=== PATIENT | male | born 2000 | race American Indian/Alaskan Native ===

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

== ENCOUNTER 2019-08-28 23:46 | Emergency (ER) | payer MEDICARE ==
[2019-08-29] MEDS ORDERED: ONDANSETRON 4 MG/2 ML INJ IV ONE (00:31)
[2019-08-29] MEDS ORDERED: HYDROmorphone 2 MG/1 ML INJ IV ONE ×2 (00:31→02:02)
[2019-08-29] MEDS ORDERED: SODIUM CHLORIDE 0.9% 1000 ML 1,000 ML IV ONE (00:31)
--- NOTE | 2019-08-29 00:31 | Emergency Department Report ---
HPI - General Chief Complaint: Sickle Cell Crisis Time Seen by Provider: 08/29/19 00:12 - HPI HPI: 19-year-old male presents to the emergency department with complaint of pain to the mid to lower back and bilateral lower extremities for the past week that he believes is a sickle cell pain crisis. These are the locations the patient usually does get pain when he has a pain crisis. He denies any fever, shortness of breath, cough, extremity swelling, rash. He has been taking his home medications including folic acid and Percocet, without any relief. He also has a past medical history of seizures and CVA without residual deficits. His rehabilitation therapist is Dr. Vasquez. No recent travel or sick contacts at home. ED Past Medical Hx - Past Medical History Hx Hypertension: Yes Hx CVA: Yes (memory loss) Hx Congestive Heart Failure: No Hx Diabetes: No Hx Sickle Cell Disease: Yes Hx Seizures: Yes Hx Asthma: No Hx COPD: No Hx HIV: No - Surgical History Additional Surgical History: Spleenectomy 2016 - Social History Smoking Status: Never Smoker Substance Use Type: None - Medications Home Medications: Home Medications Medication Instructions Recorded Confirmed Last Taken Type Albuterol INH(or & Nicu Only) 4 puff IH Q4HR PRN 03/05/19 03/05/19 Unknown History [Proair] Cholecalciferol (Vitamin D3) 1,000 unit PO DAILY 03/05/19 03/05/19 Unknown History [Children's Vitamin D3 1,000 unit CHEW] Docusate Sodium [Colace] 100 mg PO BID PRN 03/05/19 03/05/19 Unknown History Miralax 3350 17 gm PO PRN 03/05/19 03/05/19 Unknown History NIFEdipine [Adalat cc] 30 mg PO BID 03/05/19 03/05/19 Unknown History Naloxone HCl [Narcan Nasal Bomoseen] 4 mg INNOSTRIL PRN PRN 03/05/19 03/05/19 Unknown History Oxycodone HCl/Acetaminophen 1 each PO Q4HR PRN 03/05/19 03/05/19 Unknown History [Percocet 10/325 mg] Veetids TAB 250 mg PO BID 03/05/19 03/05/19 Unknown History diphenhydrAMINE [Benadryl CAP] 25 mg PO Q6HR PRN 03/05/19 03/05/19 Unknown History labetaloL [Labetalol 200mg TAB] 200 mg PO BID 03/05/19 03/05/19 Unknown History levETIRAcetam [Keppra TAB] 1,000 mg PO BID 03/05/19 03/05/19 Unknown History methOCARBAMOL [Robaxin TAB] 1,000 mg PO Q8H PRN 03/05/19 03/05/19 Unknown History ED Review of Systems ROS: Stated complaint: SICKLE CELL CRISIS Other details as noted in HPI Comment: All other systems reviewed and negative Constitutional: denies: chills, fever Eyes: denies: eye pain, vision change ENT: denies: ear pain, throat pain Respiratory: denies: cough, shortness of breath Cardiovascular: denies: chest pain, palpitations Gastrointestinal: denies: abdominal pain, vomiting Genitourinary: denies: dysuria, discharge Musculoskeletal: back pain, myalgia. denies: joint swelling Skin: denies: rash, lesions Neurological: denies: headache, weakness Physical Exam - Physical Exam Physical Exam: GENERAL: The patient is well-developed well-nourished. HENT: Normocephalic. Atraumatic. Patient has moist mucous membranes. EYES: Extraocular motions are intact. NECK: Supple. Trachea is midline. CHEST/LUNGS: Clear to auscultation. There is no respiratory distress noted. HEART/CARDIOVASCULAR: Regular. There is no tachycardia. ABDOMEN: Abdomen is soft, nontender. Patient has normal bowel sounds. SKIN: Skin is warm and dry. NEURO: The patient is awake, alert, and oriented. The patient is cooperative. The patient has no focal neurologic deficits. Normal speech. MUSCULOSKELETAL: There is no tenderness or deformity. There is no limitation range of motion. There is no evidence of acute injury. BACK: No midline thoracic or lumbar tenderness to palpation, step-off or deformity. There is reproducible lumbar and lower thoracic bilateral paraspinal tenderness to palpation. ED Medical Decision Making - Lab Data Result diagrams: 08/29/19 01:03 08/29/19 01:03 - Medical Decision Making This patient presents to the emergency department with some back pain and bilateral leg pain consistent with previous sickle cell pain crisis. His vital signs are stable including being afebrile. Patient has a hemoglobin of 11, reticulocyte count of 2. He has a potassium level of 5.5 for which he was given a small amount of Kayexalate. Patient was given IV fluid resuscitation and multiple rounds of IV analgesia with improvement of his symptoms. His pain score was down to a 3 out of 10 prior to discharge. The patient remained awake, alert, oriented throughout his ED course. He was seen ambulatory and both appears and feels stable. He has good outpatient follow-up with Dr. Vasquez, hematology. Critical Care Time: No Critical care attestation.: If time is entered above; I have spent that time in minutes in the direct care of this critically ill patient, excluding procedure time. ED Disposition Clinical Impression: Sickle cell anemia with pain Disposition: DC-01 TO HOME OR SELFCARE Is pt being admited?: No Condition: Stable Instructions: Sickle Cell Crisis (ED) Additional Instructions: Please follow-up with Dr. Vasquez in the next few days. [facility] with any worsening of your symptoms or any acute distress. Referrals: KAILEE VASQUEZ DO [Staff Physician] - 2-3 Days Time of Disposition: 03:40
[2019-08-29] MEDS ORDERED: ONDANSETRON 4 MG/2 ML INJ ONE (00:33)
[2019-08-29] MEDS ORDERED: HYDROmorphone 1 MG/1 ML INJ ONE (00:34)
[2019-08-29] MEDS ORDERED: diphenhydrAMINE 50 MG/ML VIAL ONE (00:39)
[2019-08-29] MEDS ORDERED: diphenhydrAMINE 50 MG/ML VIAL IV ONE ×2 (00:52→03:25)
[2019-08-29 01:27] LABS: BUN/Creatinine Ratio 6; Blood Urea Nitrogen 6 mg/dL (9-20); Calcium 8.6 mg/dL (8.4-10.2); Hemolysis Index 135
[2019-08-29 01:42] LABS: Basophils # (Auto) 0.1 K/mm3 (0.0-0.1); Basophils % (Auto) 1.2 % (0.0-1.8); Eosinophils # (Auto) 0.2 K/mm3 (0.0-0.4); Eosinophils % (Auto) 1.7 % (0.0-4.3); Hematocrit 35.3 % (35.5-45.6); Hemoglobin 11.6 gm/dl (11.8-15.2); Lymphocytes # (Auto) 3.3 K/mm3 (1.2-5.4); Lymphocytes % (Auto) 32.9 % (13.4-35.0); Mean Corpuscular HGB Conc 33 % (32-34); Mean Corpuscular Volume 73 fl (84-94); Monocytes # (Auto) 0.9 K/mm3 (0.0-0.8); Monocytes % (Auto) 8.9 % (0.0-7.3); Platelet Count 311 K/mm3 (140-440); Red Blood Count 4.84 M/mm3 (3.65-5.03); Red Cell Distribution Width 17.4 % (13.2-15.2)
[2019-08-29] MEDS ORDERED: KETOROLAC 30 MG/1 ML INJ IV ONE (02:02)
[2019-08-29] MEDS ORDERED: SODIUM POLYSTYRENE 15 GM/60 ML ORAL LIQD PO ONE (03:02)
[2019-08-29 03:15] VITALS: BP 144/72
[2019-08-29] MEDS ORDERED: HYDROmorphone 1 MG/1 ML INJ IV ONE (03:24)
== END 2019-08-29 04:06 | disposition home or self-care (01) ==
LOC: ED 23:46
DX: D57.00 Hb-SS disease with crisis, unspecified (principal); Z79.899 Other long term (current) drug therapy; Z98.890 Other specified postprocedural states; Z86.73 Personal history of transient ischemic attack (TIA), and cerebral infarction without residual deficits; Z86.69 Personal history of other diseases of the nervous system and sense organs; Z88.6 Allergy status to analgesic agent
CPT/HCPCS: 36415; 80048; 85025; 85045; 96374; 96375; 96376; 99284; J1170; J1200; J1885; J2405; J7030

== ENCOUNTER 2019-09-17 18:36 | Inpatient (IN) | payer MEDICARE ==
[2019-09-17 20:23] LABS: Alanine Aminotransferase 7 units/L (7-56); Albumin 4.5 g/dL (3.9-5); BUN/Creatinine Ratio 8; Basophils # (Auto) 0.1 K/mm3 (0.0-0.1); Basophils % (Auto) 1.7 % (0.0-1.8); Blood Urea Nitrogen 8 mg/dL (9-20); Calcium 8.9 mg/dL (8.4-10.2); Eosinophils # (Auto) 0.1 K/mm3 (0.0-0.4); Eosinophils % (Auto) 1.6 % (0.0-4.3); Hematocrit 36.3 % (35.5-45.6); Hemoglobin 12.3 gm/dl (11.8-15.2); Hemolysis Index 13; Lymphocytes # (Auto) 2.6 K/mm3 (1.2-5.4); Mean Corpuscular HGB Conc 34 % (32-34); Mean Corpuscular Volume 71 fl (84-94); Monocytes # (Auto) 0.9 K/mm3 (0.0-0.8); Monocytes % (Auto) 10.4 % (0.0-7.3); Platelet Count 405 K/mm3 (140-440); Red Blood Count 5.09 M/mm3 (3.65-5.03); Red Cell Distribution Width 17.7 % (13.2-15.2)
[2019-09-17] MEDS ORDERED: SODIUM CHLORIDE 0.9% 1000 ML 1,000 ML IV ONE (20:39)
[2019-09-17] MEDS ORDERED: HYDROmorphone 1 MG/1 ML INJ IV ONE (20:39)
[2019-09-17] MEDS ORDERED: HYDROmorphone 2 MG/1 ML INJ IV ONE ×3 (20:42→23:36)
--- NOTE | 2019-09-17 20:43 | Emergency Department Report ---
HPI - General Chief Complaint: Sickle Cell Crisis Time Seen by Provider: 09/17/19 20:22 - HPI HPI: 19-year-old male presents to the emergency department with complaint of a 2-day history of bilateral leg pain and back pain that he feels is a sickle cell pain crisis. He says that this is consistent with previous sickle cell pain crisis. He follows with Dr. Hanks for hematology. He has been taking his Percocet at home without much relief. 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 I saw this patient in late August of this year for similar symptoms. He denies any fever, chest pain, shortness of breath, extremity swelling, rash. ED Past Medical Hx - Past Medical History Previous Medical History?: Yes Hx Hypertension: Yes Hx CVA: Yes (memory loss) Hx Congestive Heart Failure: No Hx Diabetes: No Hx Sickle Cell Disease: Yes Hx Seizures: Yes Hx Asthma: No Hx COPD: No Hx HIV: No - Surgical History Past Surgical History?: Yes Additional Surgical History: Spleenectomy 2016 - Social History Smoking Status: Never Smoker Substance Use Type: None - Medications Home Medications: Home Medications Medication Instructions Recorded Confirmed Last Taken Type Albuterol INH(or & Nicu Only) 4 puff IH Q4HR PRN 03/05/19 03/05/19 Unknown History [Proair] Cholecalciferol (Vitamin D3) 1,000 unit PO DAILY 03/05/19 03/05/19 Unknown History [Children's Vitamin D3 1,000 unit CHEW] Docusate Sodium [Colace] 100 mg PO BID PRN 03/05/19 03/05/19 Unknown History Miralax 3350 17 gm PO PRN 03/05/19 03/05/19 Unknown History NIFEdipine [Adalat cc] 30 mg PO BID 03/05/19 03/05/19 Unknown History Naloxone HCl [Narcan Nasal [place]] 4 mg INNOSTRIL PRN PRN 03/05/19 03/05/19 Unknown History Oxycodone HCl/Acetaminophen 1 each PO Q4HR PRN 03/05/19 03/05/19 Unknown History [Percocet 10/325 mg] Veetids TAB 250 mg PO BID 03/05/19 03/05/19 Unknown History diphenhydrAMINE [Benadryl CAP] 25 mg PO Q6HR PRN 03/05/19 03/05/19 Unknown History labetaloL [Labetalol 200mg TAB] 200 mg PO BID 03/05/19 03/05/19 Unknown History levETIRAcetam [Keppra TAB] 1,000 mg PO BID 03/05/19 03/05/19 Unknown History methOCARBAMOL [Robaxin TAB] 1,000 mg PO Q8H PRN 03/05/19 03/05/19 Unknown History ED Review of Systems ROS: Stated complaint: SICKLE CELL CRISIS Other details as noted in HPI Comment: All other systems reviewed and negative Constitutional: denies: chills, fever Eyes: denies: eye pain, vision change ENT: denies: ear pain, throat pain Respiratory: denies: cough, shortness of breath Cardiovascular: denies: chest pain, palpitations Gastrointestinal: denies: abdominal pain, vomiting Genitourinary: denies: dysuria, discharge Musculoskeletal: back pain, arthralgia, myalgia Skin: denies: rash, lesions Neurological: denies: headache, weakness Physical Exam - Physical Exam Vital Signs: Vital Signs 09/17/19 18:55 Temperature 98.4 F Pulse Rate 64 Respiratory 18 Rate Blood Pressure 126/68 O2 Sat by Pulse 100 Oximetry Physical Exam: GENERAL: The patient is well-developed well-nourished. HENT: Normocephalic. Atraumatic. Patient has moist mucous membranes. EYES: Extraocular motions are intact. NECK: Supple. Trachea is midline. CHEST/LUNGS: Clear to auscultation. There is no respiratory distress noted. HEART/CARDIOVASCULAR: Regular. There is no tachycardia. ABDOMEN: Abdomen is soft, nontender. Patient has normal bowel sounds. SKIN: Skin is warm and dry. NEURO: The patient is awake, alert, and oriented. The patient is cooperative. The patient has no focal neurologic deficits. Normal speech. MUSCULOSKELETAL: There is no tenderness or deformity. There is no limitation range of motion. There is no evidence of acute injury. BACK: There is both some midline and bilateral paraspinal lumbar tenderness to palpation but no step-off or deformity. ED Course Vital Signs 09/17/19 18:55 Temperature 98.4 F Pulse Rate 64 Respiratory 18 Rate Blood Pressure 126/68 O2 Sat by Pulse 100 Oximetry ED Medical Decision Making - Lab Data Result diagrams: 09/17/19 19:52 05/13/20 19:52 - Medical Decision Making This patient presents to the emergency department with a complaint of some low back pain and bilateral leg pain that is consistent with previous sickle cell pain crisis. Hemoglobin is about 12 and reticulocyte count is about 1.5. The patient was given IV fluid resuscitation and 3 different doses of IV analgesia and the patient still complains of moderate to severe pain. For this reason I spoke with the patient's primary care physician, Dr. Hanks, who will admit the patient to his service. Critical Care Time: No Critical care attestation.: If time is entered above; I have spent that time in minutes in the direct care of this critically ill patient, excluding procedure time. ED Disposition Clinical Impression: Sickle cell pain crisis, Intractable pain Disposition: OP ADMIT IP TO THIS HOSP Is pt being admited?: Yes Condition: Fair Time of Disposition: 01:42
[2019-09-17] MEDS ORDERED: diphenhydrAMINE 50 MG/ML VIAL ONE (20:54)
[2019-09-17] MEDS ORDERED: diphenhydrAMINE 50 MG/ML VIAL IV ONE (21:03)
[2019-09-17] MEDS ORDERED: HYDROmorphone 1 MG/1 ML INJ ONE (21:05)
[2019-09-18] MEDS ORDERED: ONDANSETRON 4 MG/2 ML INJ IV ONE (00:41)
[2019-09-18] MEDS ORDERED: oxyCODONE /ACETAMINOPHEN 5-325MG TAB ONE (00:44)
[2019-09-18] MEDS ORDERED: ONDANSETRON 4 MG/2 ML INJ ONE (00:44)
[2019-09-18] MEDS: diphenhydrAMINE 50 MG/ML VIAL IV PRN ×5 (00:57→20:54)
[2019-09-18] MEDS: oxyCODONE /ACETAMINOPHEN 5-325MG TAB PO SCH ×4 (00:57→18:31)
[2019-09-18] MEDS: D5W/0.2% NACL 1,000 ML IV SCH ×4 (00:58→12:33)
[2019-09-18] MEDS: HYDROmorphone 2 MG/1 ML INJ IV PRN ×6 (02:37→20:48)
--- NOTE | 2019-09-18 21:00 | History and Physical Report ---
History of Present Illness Date of examination: 09/18/19 Date of admission: 09/18/19 00:28 Chief complaint: SCD/mild anemia/dehydration, pain crisis. History of present illness: Patient presented to the ER, with CC of diffuse joint pain, evaluated, and admitted , for sxs management/control. His pain was not controlled in the ER, hence this admission Patient usually keep fair amount of hgb, and low retic count, yet he be in pain crisis. 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 Past History Past Medical History: anemia (CVA), other Past Surgical History: No surgical history Social history: no significant social history, single, lives with family Family history: no significant family history Medications and Allergies Allergies Allergy/AdvReac Type Severity Reaction Status Date / Time aspirin Allergy Unknown Verified 08/29/19 00:44 Home Medications Medication Instructions Recorded Confirmed Last Taken Type Albuterol INH(or & Nicu Only) 4 puff IH Q4HR PRN 03/05/19 09/18/19 Unknown History [Proair] Cholecalciferol (Vitamin D3) 1,000 unit PO DAILY 03/05/19 09/18/19 Unknown History [Children's Vitamin D3 1,000 unit CHEW] Docusate Sodium [Colace] 100 mg PO BID PRN 03/05/19 09/18/19 Unknown History Miralax 3350 17 gm PO PRN 03/05/19 09/18/19 Unknown History NIFEdipine [Adalat cc] 30 mg PO BID 03/05/19 09/18/19 Unknown History Naloxone HCl [Narcan Nasal [place]] 4 mg INNOSTRIL PRN PRN 03/05/19 09/18/19 Unknown History Oxycodone HCl/Acetaminophen 1 each PO Q4HR PRN 03/05/19 09/18/19 Unknown History [Percocet 10/325 mg] Veetids TAB 250 mg PO BID 03/05/19 09/18/19 Unknown History diphenhydrAMINE [Benadryl CAP] 25 mg PO Q6HR PRN 03/05/19 09/18/19 Unknown History labetaloL [Labetalol 200mg TAB] 200 mg PO BID 03/05/19 09/18/19 Unknown History levETIRAcetam [Keppra TAB] 1,000 mg PO BID 03/05/19 09/18/19 Unknown History methOCARBAMOL [Robaxin TAB] 1,000 mg PO Q8H PRN 03/05/19 09/18/19 Unknown History Active Meds: Active Medications Diphenhydramine HCl (Benadryl) 12.5 mg IV Q3H PRN PRN Reason: Itching Last Admin: 09/18/19 10:25 Dose: 12.5 mg Documented by: Hydromorphone HCl (Dilaudid) 2 mg IV Q3H PRN PRN Reason: Pain, Moderate (4-6) Last Admin: 09/18/19 20:48 Dose: 2 mg Documented by: Dextrose/Sodium Chloride (D5ns 0.2%) 1,000 mls @ 250 mls/hr IV DIRECT LENNY Last Admin: 09/18/19 12:33 Dose: 250 mls/hr Documented by: Oxycodone/Acetaminophen (Percocet 5/325) 2 tab PO Q6H LNENY Last Admin: 09/18/19 18:31 Dose: 2 tab Documented by: Review of Systems Constitutional: weakness, chronic pain Musculoskeletal: low back pain, shooting leg pain Exam - Constitutional Vitals: Temp Pulse Resp BP Pulse Ox 98.2 F 70 16 157/77 100 09/18/19 20:08 09/18/19 20:08 09/18/19 20:48 09/18/19 20:08 09/18/19 20:08 General appearance: Present: mild distress, well-nourished - EENT Eyes: Present: PERRL ENT: hearing intact, clear oral mucosa - Neck Neck: Present: supple, normal ROM - Respiratory Respiratory effort: normal Respiratory: bilateral: CTA - Cardiovascular Heart Sounds: Present: S1 & S2. Absent: rub, click - Extremities Extremities: pulses symmetrical, No edema Peripheral Pulses: within normal limits - Abdominal General gastrointestinal: Present: soft, non-tender, non-distended, normal bowel sounds Male genitourinary: Present: deferred - Rectal Rectal Exam: deferred - Integumentary Integumentary: Present: clear, warm, dry - Musculoskeletal Musculoskeletal: gait normal, strength equal bilaterally - Psychiatric Psychiatric: appropriate mood/affect, intact judgment & insight - Neurologic Neurologic: CNII-XII intact, moves all extremities HEART Score - HEART Score Risk factors: No known risk factors (no major risk.) Results - Labs CBC & Chem 7: 09/17/19 19:52 09/17/19 19:52 Assessment and Plan - Patient Problems (1) Sickle cell pain crisis Current Visit: Yes Status: Acute Plan to address problem: Pain control (2) Dehydration Current Visit: No Status: Resolved Plan to address problem: hydration. (3) Weakness Current Visit: No Status: Resolved Plan to address problem: supportive care.
[2019-09-18] MEDS ORDERED: POLYETHYLENE GLYCOL 3350 17 GM POWDER PO PRN (21:06)
[2019-09-19] MEDS: HYDROmorphone 2 MG/1 ML INJ IV PRN ×6 (00:01→23:46)
[2019-09-19] MEDS: diphenhydrAMINE 50 MG/ML VIAL IV PRN ×6 (00:03→23:45)
[2019-09-19] MEDS: oxyCODONE /ACETAMINOPHEN 5-325MG TAB PO SCH ×4 (05:28→18:32)
[2019-09-19] MEDS: D5W/0.2% NACL 1,000 ML IV SCH ×3 (06:10→20:27)
--- NOTE | 2019-09-20 00:13 | Progress Note ---
Assessment and Plan - Patient Problems (1) Sickle cell pain crisis Current Visit: Yes Status: Acute Plan to address problem: Pain control (2) Dehydration Current Visit: No Status: Resolved Plan to address problem: hydration. (3) Weakness Current Visit: No Status: Resolved Plan to address problem: supportive care. Subjective Date of service: 09/19/19 Interval history: Patient seen/examined,this is a late note entry. he is resting in bed, no new issues at this time. His pain rated at 7/10 , with current management.Will check labs in am, and plan discharge , based on improvement. Objective - Constitutional Vitals: Vital Signs - 12hr 09/19/19 09/19/19 16:00 20:10 Temperature 98.6 F 98.6 F Pulse Rate 60 56 L Respiratory 19 18 Rate Blood Pressure 165/72 Blood Pressure 148/64 [left arm] O2 Sat by Pulse 95 100 Oximetry General appearance: Present: mild distress, well-nourished - EENT Eyes: PERRL, EOM intact ENT: hearing intact, clear oral mucosa Ears: bilateral: normal - Neck Neck: supple, normal ROM - Respiratory Respiratory effort: normal Respiratory: bilateral: CTA - Breasts Breasts: deferred - Cardiovascular Rhythm: regular Heart Sounds: Present: S1 & S2. Absent: gallop, rub Extremities: pulses intact, No edema, normal color, Full ROM - Gastrointestinal General gastrointestinal: Present: soft, non-tender, non-distended, normal bowel sounds Rectal Exam: deferred - Genitourinary Male genitourinary: deferred - Integumentary Integumentary: clear, warm, dry - Musculoskeletal Musculoskeletal: 1, strength equal bilaterally - Neurologic Neurologic: moves all extremities - Psychiatric Psychiatric: memory intact, appropriate mood/affect, intact judgment & insight - Labs CBC & Chem 7: 09/17/19 19:52 09/17/19 19:52 HEART Score - HEART Score Risk factors: No known risk factors (no major risk.)
[2019-09-20] MEDS: oxyCODONE /ACETAMINOPHEN 5-325MG TAB PO SCH ×4 (01:16→18:31)
[2019-09-20] MEDS: D5W/0.2% NACL 1,000 ML IV SCH ×5 (01:17→23:45)
[2019-09-20] MEDS: diphenhydrAMINE 50 MG/ML VIAL IV PRN ×6 (03:16→21:19)
[2019-09-20] MEDS: HYDROmorphone 2 MG/1 ML INJ IV PRN ×6 (03:17→21:13)
[2019-09-20 05:33] LABS: Basophils # (Auto) 0.1 K/mm3 (0.0-0.1); Eosinophils # (Auto) 0.3 K/mm3 (0.0-0.4); Hematocrit 39.3 % (35.5-45.6); Hemoglobin 13.2 gm/dl (11.8-15.2); Lymphocytes # (Auto) 2.3 K/mm3 (1.2-5.4); Lymphocytes % (Auto) 23.7 % (13.4-35.0); Mean Corpuscular HGB Conc 34 % (32-34); Mean Corpuscular Volume 72 fl (84-94); Monocytes # (Auto) 1.5 K/mm3 (0.0-0.8); Platelet Count 362 K/mm3 (140-440); Red Blood Count 5.47 M/mm3 (3.65-5.03); Red Cell Distribution Width 18.4 % (13.2-15.2)
--- NOTE | 2019-09-20 20:52 | Progress Note ---
Assessment and Plan - Patient Problems (1) Sickle cell pain crisis Current Visit: Yes Status: Acute Plan to address problem: Pain control (2) Dehydration Current Visit: No Status: Resolved Plan to address problem: hydration. (3) Weakness Current Visit: No Status: Resolved Plan to address problem: supportive care. (4) Insomnia Current Visit: Yes Status: Acute Plan to address problem: sleeping aid. Subjective Date of service: 09/20/19 Interval history: Patient seen/examined,this is a late note entry. he is resting in bed, no new issues at this time. His pain rated at 7/10 , with current management.Will check labs in am, and plan discharge , based on improvement. Patient seen/examined, resting in bed, labs reviewed, case d/w patient. He is rating his pain as 7/10, with current pain management. He stated, that he has not slept since he was admitted.He also reported 2-3hrs delay in bringin g his medication, especially yesterday during the day hrs.Will give sleeping aid, and start planning d/c home in a 1-2 days, if all goes well. Objective - Constitutional Vitals: Vital Signs - 12hr 09/20/19 09/20/19 09/20/19 09:47 10:00 10:48 Temperature 98.3 F Pulse Rate 69 Pulse Rate [ 72 Apical] Respiratory 15 18 Rate Blood Pressure 142/90 O2 Sat by Pulse 98 97 100 Oximetry 09/20/19 09/20/19 09/20/19 10:51 11:21 13:15 Temperature Pulse Rate Pulse Rate [ Apical] Respiratory 16 16 16 Rate Blood Pressure O2 Sat by Pulse Oximetry 09/20/19 09/20/19 09/20/19 13:50 14:15 14:20 Temperature Pulse Rate Pulse Rate [ Apical] Respiratory 16 14 16 Rate Blood Pressure O2 Sat by Pulse Oximetry 09/20/19 09/20/19 09/20/19 15:52 17:58 18:28 Temperature 98.9 F Pulse Rate 61 Pulse Rate [ Apical] Respiratory 18 15 16 Rate Blood Pressure 147/83 O2 Sat by Pulse 97 Oximetry 09/20/19 09/20/19 09/20/19 18:31 19:31 20:02 Temperature 98.0 F Pulse Rate 63 Pulse Rate [ Apical] Respiratory 15 14 18 Rate Blood Pressure 150/88 O2 Sat by Pulse 99 Oximetry General appearance: Present: mild distress, well-nourished - EENT Eyes: PERRL, EOM intact ENT: hearing intact, clear oral mucosa Ears: bilateral: normal - Neck Neck: supple, normal ROM - Respiratory Respiratory effort: normal Respiratory: bilateral: CTA - Breasts Breasts: deferred - Cardiovascular Rhythm: regular Heart Sounds: Present: S1 & S2. Absent: gallop, rub Extremities: pulses intact, No edema, normal color, Full ROM - Gastrointestinal General gastrointestinal: Present: soft, non-tender, non-distended, normal bowel sounds Rectal Exam: deferred - Genitourinary Male genitourinary: deferred - Integumentary Integumentary: clear, warm, dry - Musculoskeletal Musculoskeletal: 1, strength equal bilaterally - Neurologic Neurologic: moves all extremities - Psychiatric Psychiatric: memory intact, appropriate mood/affect, intact judgment & insight - Labs CBC & Chem 7: 09/20/19 04:42 09/17/19 19:52 Labs: Abnormal lab results 09/20/19 Range/Units 04:42 RBC 5.47 H (3.65-5.03) M/mm3 MCV 72 L (84-94) fl MCH 24 L (28-32) pg RDW 18.4 H (13.2-15.2) % [place] % (Auto) 15.0 H (0.0-7.3) % [place] # 1.5 H (0.0-0.8) K/mm3 HEART Score - HEART Score Risk factors: No known risk factors (no major risk.)
[2019-09-20] MEDS: TEMAZEPAM 15 MG CAP PO SCH (21:14)
[2019-09-21] MEDS: diphenhydrAMINE 50 MG/ML VIAL IV PRN ×8 (00:14→22:13)
[2019-09-21] MEDS: HYDROmorphone 2 MG/1 ML INJ IV PRN ×8 (00:14→22:13)
[2019-09-21] MEDS: oxyCODONE /ACETAMINOPHEN 5-325MG TAB PO SCH ×4 (01:30→18:12)
[2019-09-21] MEDS: D5W/0.2% NACL 1,000 ML IV SCH ×6 (04:10→21:16)
--- NOTE | 2019-09-21 20:04 | Discharge Summary ---
Providers - Providers Date of Admission: 09/18/19 08:45 Date of discharge: 09/22/19 Attending physician: KAILEE VASQUEZ Primary care physician: CREDIT CASHIER Hospitalization Reason for admission: SCD/anemia, pain crisis. Condition: Stable Hospital course: Patient presented to the ER on the day of admission, with CC of diffuse joint pain, could not control at home, hence the ER trip. He was evaluated by the ER Doc, and was deemed necessary , for admission, for sxs control, and management. He was hydrated, and treated with pain control, and lab monitoring. He is seen today, and examined, resting in bed, rated pain at 5/10, no new issues at this time. Discharge discussed with him , for am tomorrow, and he was onboard. Disposition: - TO HOME OR SELFCARE - Discharge Diagnoses (1) Sickle cell pain crisis Status: Acute (2) Dehydration Status: Resolved (3) Weakness Status: Resolved (4) Insomnia Status: Chronic Core Measure Documentation - Palliative Care Palliative Care/ Comfort Measures: Not Applicable - Core Measures Any of the following diagnoses?: none Exam - Constitutional Vitals: Temp Pulse Resp BP Pulse Ox 99.6 F 80 15 163/95 96 09/21/19 19:09 09/21/19 19:09 09/21/19 19:25 09/21/19 19:09 09/21/19 19:09 General appearance: Present: mild distress, well-nourished - EENT Eyes: Present: PERRL ENT: hearing intact, clear oral mucosa - Neck Neck: Present: supple, normal ROM - Respiratory Respiratory effort: normal Respiratory: bilateral: CTA - Cardiovascular Heart Sounds: Present: S1 & S2. Absent: rub, click - Extremities Extremities: pulses symmetrical, No edema Peripheral Pulses: within normal limits - Abdominal General gastrointestinal: Present: soft, non-tender, non-distended, normal bowel sounds Male genitourinary: Present: deferred - Rectal Rectal Exam: deferred - Integumentary Integumentary: Present: clear, warm, dry - Musculoskeletal Musculoskeletal: gait normal, strength equal bilaterally - Psychiatric Psychiatric: appropriate mood/affect, intact judgment & insight - Neurologic Neurologic: CNII-XII intact, moves all extremities Plan Activity: no restrictions Diet: regular Follow up with: PRIMARY CARE, [Primary Care Provider] - 3-5 Days
[2019-09-21] MEDS: TEMAZEPAM 15 MG CAP PO SCH (21:19)
[2019-09-22] MEDS: oxyCODONE /ACETAMINOPHEN 5-325MG TAB PO SCH ×2 (01:23→06:52)
[2019-09-22] MEDS: D5W/0.2% NACL 1,000 ML IV SCH ×2 (01:47→05:32)
[2019-09-22] MEDS: diphenhydrAMINE 50 MG/ML VIAL IV PRN ×3 (01:47→09:39)
[2019-09-22] MEDS: HYDROmorphone 2 MG/1 ML INJ IV PRN ×3 (01:47→09:39)
[2019-09-22 08:23] VITALS: BP 135/69
== END 2019-09-22 11:15 | disposition home or self-care (01) | DRG 812 ==
LOC: ED 18:36 → 4A 09-18 00:28 → OBSVTOIN 09-18 08:45
PROVIDERS: ADMIT Internal Medicine Hematology & Oncology; ATTEND Internal Medicine Hematology & Oncology
DX: D57.00 Hb-SS disease with crisis, unspecified (principal); E86.0 Dehydration; G47.00 Insomnia, unspecified; I10 Essential (primary) hypertension; Z88.6 Allergy status to analgesic agent; Z79.899 Other long term (current) drug therapy; Z86.73 Personal history of transient ischemic attack (TIA), and cerebral infarction without residual deficits; Z90.81 Acquired absence of spleen
CPT/HCPCS: 36415; 80053; 85025; 85045; 94760; G0378; J1170; J1200; J2405; J7030

== ENCOUNTER 2020-04-15 04:10 | Emergency (ER) | payer MEDICARE ==
[2020-04-15 10:22] LABS: Hemoglobin 11.7 gm/dl (11.8-15.2); Red Blood Count 4.79 M/mm3 (3.65-5.03)
[2020-04-15 10:23] LABS: Basophils # (Auto) 0.1 K/mm3 (0.0-0.1); Basophils % (Auto) 0.5 % (0.0-1.8); Eosinophils # (Auto) 0.2 K/mm3 (0.0-0.4); Hematocrit 35.3 % (35.5-45.6); Lymphocytes # (Auto) 4.2 K/mm3 (1.2-5.4); Lymphocytes % (Auto) 36.4 % (13.4-35.0); Mean Corpuscular HGB Conc 33 % (32-34); Mean Corpuscular Volume 74 fl (84-94); Monocytes # (Auto) 1.1 K/mm3 (0.0-0.8); Monocytes % (Auto) 9.5 % (0.0-7.3); Platelet Count 332 K/mm3 (140-440); Red Cell Distribution Width 18.2 % (13.2-15.2)
== END 2020-04-15 04:30 | disposition left against medical advice (07) ==
LOC: ED 04:10
DX: D57.1 Sickle-cell disease without crisis (principal); Z53.21 Procedure and treatment not carried out due to patient leaving prior to being seen by health care provider
CPT/HCPCS: 36415; 85025; 85045; 93005